=== PATIENT | female | born 1980 | race Caucasian/White ===

== ENCOUNTER 2016-12-17 15:58 | Emergency (ER) | payer MEDICAID ==
[~2016-12-17] VITALS: Ht 154.9 cm; Wt 87.5 kg
[~2016-12-17 15:58] MED LIST changes: -BUTA1CAP PO
[2016-12-17 16:01] VITALS: BP 136/88; PULSE 79; RESP 20; TEMP 97.5; O2SAT 98
[2016-12-17] MEDS ORDERED: BUTA1CAP PO (18:54)
--- NOTE | 2016-12-17 18:55 | PD ---
HPI Chief Complaint: Headache Time Seen by Provider: 18:00 Travel History International Travel<30 days: No Contact w/Intl Traveler<30days: No Traveled to known affect area: No History of Present Illness HPI 36-year-old female presents emergency department for evaluation of frontal headache 3 days. Symptom onset was gradual. Patient has history of migraines. She reports this is similar to previous migraines. She denies fever , chills, neck pain. She reports mild photophobia and nausea without vomiting. The pain is unrelieved by vngw-sax-okegsup Tylenol. She reports fears that has successfully improved migraines in the past. Pain is constant, nonradiating localized to frontal region. 6 out of 10 severity. PFSH Past Medical History Blood Disorders: No Anxiety: Yes Depression: Yes Cancer: No Cardiovascular Problems: No Diminished Hearing: No Endocrine: No Gastrointestinal Disorders: No Genitourinary: No Immune Disorder: No Inguinal Hernia: Yes () Implanted Vascular Access Dvce: No Musculoskeletal: Yes (degenerative disc disease lower back) Neurologic: No Psychiatric: Yes Reproductive: No Respiratory: No Immunizations Current: Yes Migraines: Yes Tetanus Vaccination: > 5 Years ?: Not : 9 Para: 5 Tubal Ligation: Yes Past Surgical History Abdominal Surgery: Yes (HERNIA REPAIR AN ) Other Surgery: Yes (hernia repair as a baby) Social History Alcohol Use: No Tobacco Use: No Substance Use: Yes (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 SKIN: Focused skin assessment warm/dry. HEAD: Normocephalic. EYES: No scleral icterus. No injection or drainage. EOMs intact NECK: Supple, trachea midline. No JVD or lymphadenopathy. CARDIOVASCULAR: Regular rate and rhythm without murmurs, gallops, or rubs. RESPIRATORY: Breath sounds equal bilaterally. No accessory muscle use. GASTROINTESTINAL: Abdomen soft, non-tender, nondistended. MUSCULOSKELETAL: No cyanosis, or edema. BACK: Nontender without obvious deformity. No CVA tenderness. Data Data Last Documented VS Vital Signs Date Time Temp Pulse Resp B/P Pulse Ox O2 Delivery O2 Flow Rate FiO2 12/17/16 16:01 97.5 79 20 136/88 98 Room Air Orders Ketorolac Inj (Toradol Inj) (12/17/16 19:00) MDM Medical Decision Making Medical Screen Exam Complete: Yes Emergency Medical Condition: Yes Differential Diagnosis Migraine headache, tension headache, cluster headache Narrative Course 36-year-old female with a known history of migraines presents emergency department for evaluation of headache 3 days. She reports symptom onset was gradual similar to her previous migraines. She reports previous migraines have been treated successfully with Fioricet. She denies fever, chills, visual changes, neck pain, nausea or vomiting. She reports mild photophobia. Physical exam is reassuring. Diagnosis Primary Impression: Headache Qualified Code: R51 - Nonintractable headache, unspecified chronicity pattern , unspecified headache type Referrals: [facility] Additional Instructions: Take the medication as prescribed. Take ppwk-tyg-wczlrce Motrin 176331 milligrams by mouth every 6-8 hours for pain. Follow-up with her primary care doctor. Return to emergency department if he developed new or worsening symptoms. Scripts Dlzqyyevdb-Dwhnekmneonso-Irlvkpex (Fioricet)50-300-40 Mg Cap1-2 Cap PO Q6H PRN ( HEADACHE) #12 CAP Ref 0 Prov:Billie Summers 12/17/16 Disposition: 01 DISCHARGE HOME Condition: Stable Billie Summers Dec 17, 2016 18:55
[2016-12-17] MEDS ORDERED: KETOROLAC TROMETHAMINE 60 MG/2 ML (IM) VIAL IM ONE (19:00)
== END 2016-12-17 19:14 | disposition home or self-care (01) ==
LOC: NEPK 15:58
DX: R51 Headache (principal); H53.149 Visual discomfort, unspecified; R11.0 Nausea; F41.9 Anxiety disorder, unspecified; F32.9 Major depressive disorder, single episode, unspecified; Z79.899 Other long term (current) drug therapy
CPT/HCPCS: 96372; 99284; J1885

== ENCOUNTER → 2016-12-17 | Outpatient (CLI) | payer MEDICAID ==
[~2016-12-17] MED LIST: BUTA1CAP PO; CEPH500C3 PO
--- NOTE | 2016-12-18 12:57 | EKG ---
Date Performed: 12/17/2016 Time Performed: 15:44:56 PTAGE: 36 years EKG: Sinus rhythm WITH OCCASIONAL VENTRICULAR PREMATURE COMPLEXES NONSPECIFIC T-WAVE ABNORMALITY BORDERLINE ECG PREVIOUS TRACING : 06/22/2013 00.07 DOCTOR: Cipriano العراقي Interpretating Date/Time 12/18/2016 12:52:16
== END ==
LOC: HCAV 15:25
PROVIDERS: ATTEND Psychiatry & Neurology Child & Adolescent Psychiatry
DX: F33.1 Major depressive disorder, recurrent, moderate (principal); F43.10 Post-traumatic stress disorder, unspecified; F41.1 Generalized anxiety disorder; R94.31 Abnormal electrocardiogram [ECG] [EKG]
CPT/HCPCS: 93005